=== PATIENT | male | born 1975 | race African-American/Black ===

== ENCOUNTER 2025-04-12 22:35 | Inpatient (IN) | payer OTHER ==
[~2025-04-12] VITALS: Ht 193 cm; Wt 168.3 kg
[2025-04-12 23:33] LABS: BASOPHILS % 0.4 % (0.0-2.0); EOSINOPHILS % 4.7 % (0.0-5.0); HEMATOCRIT. 28.2 % (42.0-52.0); HEMOGLOBIN. 9.2 g/dL (14.0-18.0); LYMPHOCYTES % 13.8 % (20.0-50.0); MEAN PLATELET VOLUME 8.0 fl (7.4-10.4); MONOCYTES % 7.8 % (2.0-8.0); NEUTROPHILS % 73.3 % (40.0-76.0); PLATELET 204 x1000/uL (130-400); RED BLOOD CELL COUNT 3.15 mill/uL (4.7-6.1); RED CELL DISTRIBUTION WIDTH 17.5 % (11.6-14.6)
[2025-04-12 23:34] LABS: CLARITY URINE CLEAR (CLEAR); COLOR URINE YELLOW (YELLOW); GLUCOSE URINE NEGATIVE (NEGATIVE); KETONES URINE NEGATIVE (NEGATIVE); LEUKOCYTE ESTERASE URINE NEGATIVE (NEGATIVE); NITRITE URINE NEGATIVE (NEGATIVE); OCCULT BLOOD URINE TRACE (NEGATIVE); PH URINE 8.5 (4.5-8.0); PROTEIN URINE 2+ (NEGATIVE); SPECIFIC GRAVITY URINE 1.011 (1.005-1.030); UROBILINOGEN URINE 0.2 E.U./dL (0.2-1.0)
[2025-04-12 23:47] LABS: UREA NITROGEN BLOOD 79 mg/dL (9-23)
[2025-04-12 23:49] LABS: BILIRUBIN DIRECT 0.2 mg/dL (<=3.0); BILIRUBIN TOTAL 0.4 mg/dL (0.1-1.0); PROTEIN TOTAL 8.0 g/dL (6.0-8.3)
[2025-04-13] VITALS (9 sets, daily range): BP systolic 97–145; BP diastolic 64–99; PULSE 77–103; RESP 14–22; TEMP 36.2–36.7; O2SAT 95–100
[2025-04-13] MEDS: HYDROCODONE/ACETAMINOPHEN 5/325MG TABLET PO ONE
[2025-04-13 00:08] LABS: BACTERIA URINE TRACE; SQUAMOUS EPITHELIAL CELL URINE FEW /lpf (RARE/1+); WHITE BLOOD CELL CASTS URINE 0-5 /lpf
[2025-04-13 00:11] LABS: ASPARTATE AMINOTRANSFERASE < 8 IU/L (<34)
[2025-04-13 00:14] LABS: CREATININE 14.1 mg/dL (0.6-1.3)
[2025-04-13] MEDS: ALBUTEROL (0.5%) 2.5MG/0.5ML NEB HHN ONE (00:15)
[2025-04-13] MEDS: DEXTROSE 50% WATER 50ML SYRINGE IV ONE (00:54)
[2025-04-13] MEDS: SODIUM BICARBONATE 8.4% 50MEQ/50ML SYR IV NR (00:54)
[2025-04-13] MEDS: INSULIN REGULAR (HUMULIN R) 1000UNITS/10ML VIAL IV ONE (00:55)
[2025-04-13] MEDS: SODIUM BICARBONATE 8.4% 50MEQ/50ML VIAL IV ONE (01:02)
[2025-04-13] MEDS ORDERED: OXYC1TAB12 MT (03:05)
[2025-04-13] MEDS ORDERED: ONDA-239 PO (03:05)
[2025-04-13] MEDS: SODIUM POLYSTYRENE SULFONATE 15 G/60 ML BOT PO ONE (04:44)
[2025-04-13] MEDS: OXYCODONE HCL/ACETAMINOPHEN 5/325MG TABLET PO PRN (04:46)
[2025-04-13] MEDS: ONDANSETRON HCL 4MG/2ML INJ IV PRN (04:46)
[2025-04-13] MEDS ORDERED: NALOXONE HCL 0.4MG/ML VIAL IV PRN (08:30)
[2025-04-13] MEDS: ASPIRIN 81MG TABLET PO SCH (09:06)
[2025-04-13] MEDS: AMLODIPINE 5MG TABLET PO SCH (09:06)
[2025-04-13] MEDS: ENOXAPARIN 30MG/0.3ML SYR SUBCUT SCH (09:06)
[2025-04-13] MEDS: ATORVASTATIN CALCIUM 40MG TABLET PO SCH (09:06)
[2025-04-13 12:05] LABS: BASOPHILS % 0.5 % (0.0-2.0); EOSINOPHILS % 3.5 % (0.0-5.0); HEMATOCRIT. 29.0 % (42.0-52.0); HEMOGLOBIN. 9.4 g/dL (14.0-18.0); LYMPHOCYTES % 10.4 % (20.0-50.0); MEAN PLATELET VOLUME 8.8 fl (7.4-10.4); MONOCYTES % 7.2 % (2.0-8.0); NEUTROPHILS % 78.4 % (40.0-76.0); PLATELET 219 x1000/uL (130-400); RED BLOOD CELL COUNT 3.15 mill/uL (4.7-6.1); RED CELL DISTRIBUTION WIDTH 17.9 % (11.6-14.6)
[2025-04-13 12:20] LABS: LDL CHOLESTEROL 70.0 mg/dL (5-100); TRIGLYCERIDE 139.0 mg/dL (0-150)
[2025-04-13] MEDS ORDERED: CARI250T7 PO (12:24)
[2025-04-13] MEDS ORDERED: CALC667C PO (12:24)
[2025-04-13] MEDS ORDERED: PANT40TA51 PO (12:24)
[2025-04-13] MEDS ORDERED: APIX2.5T PO (16:51)
[2025-04-13 17:46] LABS: HEPATITIS A AB IGM NEGATIVE (Negative)
[2025-04-13 17:47] LABS: HEPATITIS B CORE AB IGM NEGATIVE (Negative); HEPATITIS C AB NON REACTIVE (Neg) (Negative)
[2025-04-13] MEDS: FAMOTIDINE 20MG TABLET PO SCH (21:12)
[2025-04-14] VITALS (12 sets, daily range): BP systolic 120–158; BP diastolic 58–105; PULSE 82–114; RESP 18–20; TEMP 36.2–36.8; O2SAT 97–100
[2025-04-14] MEDS: SEVELAMER CARBONATE 800 MG TABLET PO SCH (13:15)
[2025-04-14 16:51] LABS: UREA NITROGEN BLOOD 73.0 mg/dL (9-23)
[2025-04-14 17:01] LABS: CREATININE 13.6 mg/dL (0.6-1.3)
[2025-04-14] MEDS: DEXTROSE 50% WATER 50ML SYRINGE IV NR (18:01)
[2025-04-14] MEDS: SODIUM BICARBONATE 8.4% 50MEQ/50ML SYR IV NR (18:01)
[2025-04-14] MEDS: SODIUM POLYSTYRENE SULFONATE 15 G/60 ML BOT PO NR (18:01)
[2025-04-14] MEDS: INSULIN REGULAR (HUMULIN R) 1000UNITS/10ML VIAL IV NR (18:14)
[2025-04-14] MEDS ORDERED: CALCIUM GLUCONATE 1GM PREMIX 50 ML IV NR (20:00)
[2025-04-15] VITALS (17 sets, daily range): BP systolic 117–169; BP diastolic 51–101; PULSE 77–97; RESP 18–21; TEMP 36.114–37.7; O2SAT 95–100
[2025-04-15] MEDS: CALCIUM GLUCONATE 1GM PREMIX 50 ML IV SCH (00:24)
[2025-04-15] MEDS: ENOXAPARIN 40MG/0.4ML SYR SUBCUT SCH (08:49)
[2025-04-15] MEDS: FOLIC ACID/VITAMIN B COMP W-C TABLET PO SCH (08:57)
[2025-04-15 11:25] LABS: HEMATOCRIT. 27.3 % (42.0-52.0); HEMOGLOBIN. 9.0 g/dL (14.0-18.0); MEAN PLATELET VOLUME 8.2 fl (7.4-10.4); PLATELET 244 x1000/uL (130-400); RED BLOOD CELL COUNT 2.99 mill/uL (4.7-6.1); RED CELL DISTRIBUTION WIDTH 17.6 % (11.6-14.6)
[2025-04-15 11:33] LABS: UREA NITROGEN BLOOD 49.0 mg/dL (9-23)
[2025-04-15 11:46] LABS: CREATININE 10.6 mg/dL (0.6-1.3)
[2025-04-15 12:59] LABS: BAND% 1.0 % (1.0-6.0); EOSINOPHILS % MANUAL 1.0 % (0.0-5.0); LYMPHOCYTES % MANUAL 7.0 % (20.0-50.0); MONOCYTES % MANUAL 7.0 % (2.0-8.0); NEUTROPHILS % MANUAL 84.0 % (45.0-75.0); PLATELET ESTIMATE NORMAL
[2025-04-15] MEDS: ATORVASTATIN CALCIUM 40MG TABLET PO SCH (20:36)
[2025-04-16] VITALS (7 sets, daily range): BP systolic 123–146; BP diastolic 70–86; PULSE 88–95; RESP 20–21; TEMP 36.1–37.1; O2SAT 97–100
[2025-04-16 09:47] LABS: HEMATOCRIT. 27.5 % (42.0-52.0); HEMOGLOBIN. 8.8 g/dL (14.0-18.0); MEAN PLATELET VOLUME 8.0 fl (7.4-10.4); PLATELET 232 x1000/uL (130-400); RED BLOOD CELL COUNT 2.97 mill/uL (4.7-6.1); RED CELL DISTRIBUTION WIDTH 17.5 % (11.6-14.6)
[2025-04-16 10:20] LABS: UREA NITROGEN BLOOD 41.0 mg/dL (9-23)
[2025-04-16 10:42] LABS: CREATININE 9.6 mg/dL (0.6-1.3)
[2025-04-16 13:27] LABS: BG BASE EXCESS -2.2 mmol/L (-2.0-3.0); BG CARBOXYHEMOGLOBIN 1.3 % (0.5-1.5); BG DEOXYHEMOGLOBIN 8.4 % (0.0-5.0); BG FRACTION INSPIRED OXYGEN 28; BG HCO3 ACT 26.1 mmol/L (21.0-28.0); BG METHEMOGLOBIN 0.3 % (0.5-1.5); BG OXYGEN SATURATION 91.5 % (94.0-98.0); BG OXYHEMOGLOBIN 90.0 % (94.0-98.0); BG PCO2 65.4 mmHg (35.0-48.0); BG PH 7.219 (7.350-7.450); BG PO2 74.0 mmHg (83.0-108.0); BG SAMPLE SITE RIGHT BRACHIAL; BG TOTAL HEMOGLOBIN 9.5 g/dL (13.5-17.5); BG VENT MODE NASAL CANNULA
[2025-04-16 14:10] LABS: EOSINOPHILS % MANUAL 2.0 % (0.0-5.0); LYMPHOCYTES % MANUAL 5.0 % (20.0-50.0); MONOCYTES % MANUAL 8.0 % (2.0-8.0); NEUTROPHILS % MANUAL 85.0 % (45.0-75.0); PLATELET ESTIMATE NORMAL
[2025-04-17] VITALS (17 sets, daily range): BP systolic 107–149; BP diastolic 54–97; PULSE 76–97; RESP 17–25; TEMP 36.16956–36.9; O2SAT 98–100
[2025-04-17 08:32] LABS: BASOPHILS % 0.7 % (0.0-2.0); EOSINOPHILS % 6.5 % (0.0-5.0); HEMATOCRIT. 25.5 % (42.0-52.0); HEMOGLOBIN. 8.4 g/dL (14.0-18.0); LYMPHOCYTES % 9.2 % (20.0-50.0); MEAN PLATELET VOLUME 7.8 fl (7.4-10.4); MONOCYTES % 8.6 % (2.0-8.0); NEUTROPHILS % 75.0 % (40.0-76.0); PLATELET 225 x1000/uL (130-400); RED BLOOD CELL COUNT 2.79 mill/uL (4.7-6.1); RED CELL DISTRIBUTION WIDTH 17.9 % (11.6-14.6)
[2025-04-17 08:52] LABS: UREA NITROGEN BLOOD 48.0 mg/dL (9-23)
[2025-04-17 09:20] LABS: CREATININE 10.8 mg/dL (0.6-1.3)
[2025-04-17 10:25] LABS: BG BASE EXCESS 0.1 mmol/L (-2.0-3.0); BG CARBOXYHEMOGLOBIN 0.5 % (0.5-1.5); BG DEOXYHEMOGLOBIN 8.6 % (0.0-5.0); BG FRACTION INSPIRED OXYGEN 21; BG HCO3 ACT 28.4 mmol/L (21.0-28.0); BG METHEMOGLOBIN 0.3 % (0.5-1.5); BG OXYGEN SATURATION 91.3 % (94.0-98.0); BG OXYHEMOGLOBIN 90.6 % (94.0-98.0); BG PCO2 66.6 mmHg (35.0-48.0); BG PH 7.247 (7.350-7.450); BG PO2 74.1 mmHg (83.0-108.0); BG SAMPLE SITE RIGHT BRACHIAL; BG TOTAL HEMOGLOBIN 10.3 g/dL (13.5-17.5); BG VENT MODE ROOM AIR
[2025-04-18] VITALS (8 sets, daily range): BP systolic 127–144; BP diastolic 79–97; PULSE 89–100; RESP 18–24; TEMP 36.8–37.2; O2SAT 97–100
[2025-04-18 09:12] LABS: UREA NITROGEN BLOOD 43.0 mg/dL (9-23)
[2025-04-18 09:18] LABS: CREATININE 9.6 mg/dL (0.6-1.3)
== END 2025-04-18 19:10 | disposition home or self-care (01) | DRG 425 ==
LOC: ER 22:35 → 7WST 04-13 00:52 → EDBEDREQTM 04-13 01:10 → EDBEDREQDT 04-13 01:10 → EDBEDREQ 04-13 01:10 → ENRESERV 04-13 02:05
PROVIDERS: ADMIT Internal Medicine; ATTEND Internal Medicine
PROC: 5A1D70Z Performance of Urinary Filtration, Intermittent, Less than 6 Hours Per Day (ICD-10-PCS; principal; 2025-04-13)
PROC: 5A1D70Z Performance of Urinary Filtration, Intermittent, Less than 6 Hours Per Day (ICD-10-PCS; 2025-04-14)
PROC: 5A1D70Z Performance of Urinary Filtration, Intermittent, Less than 6 Hours Per Day (ICD-10-PCS; 2025-04-15)
PROC: 5A09357 Assistance with Respiratory Ventilation, Less than 24 Consecutive Hours, Continuous Positive Airway Pressure (ICD-10-PCS; 2025-04-16)
PROC: 5A1D70Z Performance of Urinary Filtration, Intermittent, Less than 6 Hours Per Day (ICD-10-PCS; 2025-04-17)
PROC: 5A09357 Assistance with Respiratory Ventilation, Less than 24 Consecutive Hours, Continuous Positive Airway Pressure (ICD-10-PCS; 2025-04-17)
DX: E87.5 Hyperkalemia (principal); J96.00 Acute respiratory failure, unspecified whether with hypoxia or hypercapnia; I12.0 Hypertensive chronic kidney disease with stage 5 chronic kidney disease or end stage renal disease; E87.70 Fluid overload, unspecified; K80.20 Calculus of gallbladder without cholecystitis without obstruction; N18.6 End stage renal disease; E66.2 Morbid (severe) obesity with alveolar hypoventilation; N20.0 Calculus of kidney; J44.9 Chronic obstructive pulmonary disease, unspecified; D64.9 Anemia, unspecified; F17.210 Nicotine dependence, cigarettes, uncomplicated; Z99.2 Dependence on renal dialysis; Z99.81 Dependence on supplemental oxygen; Z88.0 Allergy status to penicillin; Z68.42 Body mass index [BMI] 45.0-49.9, adult
CPT/HCPCS: 36415; 36600; 71045; 74176; 80048; 80061; 80076; 81003; 82375; 82805; 84132; 85025; 86705; 86709; 87340; 90935; 93005; 94070; 94640; 94660; 94664; 94760; 99291; J0610; J1650; J1815; J2405; J3490